=== PATIENT | female | born 1985 | race Hispanic/Latino ===

== ENCOUNTER 2017-11-10 13:56 | Outpatient (CLI) | payer BC, OTHER | END 2017-11-10 13:57 | disposition home or self-care (01) | LOC: DTY/OP 13:56 | PROVIDERS: ATTEND Family Medicine | DX: E66.01 Morbid (severe) obesity due to excess calories (principal) | CPT/HCPCS: 97802 ==

== ENCOUNTER 2017-12-07 16:42 | Outpatient (CLI) | payer BC ==
[2017-12-07 17:08] LABS: #Basophils 0.1 thou/uL (0.0-0.2); #Eosinphils 0.1 thou/uL (0.0-0.7); #Lymphocytes 2.3 thou/uL (1.20-3.40); #Monocytes 0.5 thou/uL (0.11-0.59); #Neutrophils 6.4 thou/uL (1.40-6.50); %Basophils 0.7 % (0.0-1.0); %Eosinophils 0.9 % (0.0-10.0); %Lymphocytes 24.7 % (21.0-51.0); %Monocytes 5.1 % (0.0-10.0); %Neutrophils 68.7 % (42.0-75.0); Hemoglobin 13.5 g/dL (12.0-16.0); Mean Corpuscular HGB CONC 33.8 g/dL (32.0-36.0); Mean Corpuscular Hemoglobin 28.3 pg (27.0-31.0); Mean Corpuscular Volume 83.7 fL (78.0-98.0); Mean Platelet Volume 7.7 fL (7.4-10.4); Platelet Count 317 thou/uL (130-400); RBC Distribution Width 11.9 % (11.5-14.5); Red Blood Cell (RBC) Count 4.78 mill/uL (4.20-5.40); White Blood Cell (WBC) Count 9.3 thou/uL (4.8-10.8)
--- NOTE | 2017-12-07 17:11 | RAD ---
CHEST TWO VIEWS: 12/07/17 HISTORY: Preop. FINDINGS: No comparison. The cardiac silhouette and pulmonary vasculature are unremarkable. The mediastinum is midline. No con fluent air space consolidation, pneumothorax or pleural fluid are apparent. IMPRESSION: No active cardiopulmonary abnormalities are demonstrated. POS: [facility]
[2017-12-07 17:19] LABS: BHCG - Serum Negative (NEGATIVE); Pregs Control Background? CLEAR/WHITE (CLR/WHITE); Pregs Control Bar Appear? YES (CONTROL BAR)
[2017-12-07 17:22] LABS: Hemoglobin A1c 4.9 % (4.0-6.0)
[2017-12-07 17:31] LABS: ALT (SGPT) 13 U/L (8-55); AST (SGOT) 12 U/L (5-34); Alkaline Phosphatase 74 U/L (40-150); Anion Gap 14 mmol/L (10-20); BUN (Urea Nitrogen) 18 mg/dL (7.0-18.7); Bilirubin, Direct 0.2 mg/dL (0.1-0.3); Bilirubin, Total 0.4 mg/dL (0.2-1.2); Calc. Creatinine Clearance 0 mL/min (70-130); Calcium 9.7 mg/dL (7.8-10.44); Carbon Dioxide 24 mmol/L (22-29); Chloride 103 mmol/L (98-107); Estimated GFR-MDRD 69; Globulin 3.6 g/dL (2.4-3.5); Glucose 80 mg/dL (70-105); Protein, Total 7.6 g/dL (6.0-8.3); Sodium 137 mmol/L (136-145)
--- NOTE | 2017-12-09 16:52 | EKG ---
Test Reason : Blood Pressure : / mmHG Vent. Rate : 073 BPM Atrial Rate : 073 BPM P-R Int : 160 ms QRS Dur : 084 ms QT Int : 386 ms P-R-T Axes : 053 071 028 degrees QTc Int : 425 ms Normal sinus rhythm with sinus arrhythmia Normal ECG When compared with ECG of 29-SEP-2000 23:35, PREVIOUS ECG IS PRESENT Confirmed by HARLEEN GALLEGOS ([id number]) on 12/09/2017 4:51:53 PM Referred By: [facility] Confirmed By:HARLEEN GALLEGOS
== END 2017-12-07 16:43 | disposition home or self-care (01) ==
LOC: LABBT 16:42
PROVIDERS: ATTEND Surgery
DX: E66.01 Morbid (severe) obesity due to excess calories (principal)
CPT/HCPCS: 71046; 80053; 80076; 83036; 84703; 85025; 93005; 93010

== ENCOUNTER 2019-01-26 15:32 | Outpatient (CLI) | payer BC ==
[2019-01-26 17:00] LABS: Hemoglobin 13.4 g/dL (12.0-16.0); Mean Corpuscular HGB CONC 33.3 g/dL (32.0-36.0); Mean Corpuscular Hemoglobin 29.5 pg (27.0-31.0); Mean Corpuscular Volume 88.6 fL (78.0-98.0); Mean Platelet Volume 8.3 fL (7.4-10.4); Platelet Count 278 thou/uL (130-400); RBC Distribution Width 11.9 % (11.5-14.5); Red Blood Cell (RBC) Count 4.54 mill/uL (4.20-5.40); White Blood Cell (WBC) Count 6.9 thou/uL (4.8-10.8)
[2019-01-26 17:03] LABS: Prothrombin Time 13.2 SEC (12.0-14.7)
[2019-01-26 17:16] LABS: Anion Gap 11 mmol/L (10-20); BUN (Urea Nitrogen) 9 mg/dL (7.0-18.7); Calc. Creatinine Clearance 0 mL/min (70-130); Carbon Dioxide 25 mmol/L (22-29); Chloride 104 mmol/L (98-107); Estimated GFR-MDRD 85; Glucose 77 mg/dL (70-105); Potassium 3.4 mmol/L (3.5-5.1); Sodium 137 mmol/L (136-145)
[2019-01-26 18:15] LABS: BHCG - Serum Negative (NEGATIVE); Pregs Control Background? CLEAR/WHITE (CLR/WHITE); Pregs Control Bar Appear? YES (CONTROL BAR)
--- NOTE | 2019-01-30 23:04 | EKG ---
Test Reason : Blood Pressure : / mmHG Vent. Rate : 075 BPM Atrial Rate : 075 BPM P-R Int : 168 ms QRS Dur : 076 ms QT Int : 406 ms P-R-T Axes : 066 065 045 degrees QTc Int : 453 ms Normal sinus rhythm Normal ECG When compared with ECG of 07-DEC-2017 16:48, No significant change was found Confirmed by ATA LÓPEZ M.D. ([id number] on 01/30/2019 11:03:40 PM Referred By: [facility] Confirmed By:ATA LÓPEZ M.D.
== END 2019-01-26 15:33 | disposition home or self-care (01) ==
LOC: LABBT 15:32
PROVIDERS: ATTEND Internal Medicine Cardiovascular Disease
DX: Z01.818 Encounter for other preprocedural examination (principal)
CPT/HCPCS: 80048; 84703; 85027; 85610; 85730; 93005; 93010

== ENCOUNTER 2019-01-30 06:03 | Day surgery (SDC) | payer BC ==
[2019-01-26 16:38] VITALS: BMI 30.2
[2019-01-30] MEDS ORDERED: Lidocaine 1% (PF) 30 ML VIAL ONE (06:43)
[2019-01-30] MEDS ORDERED: Midazolam HCl 2 mg/2 ml Vial ONE (07:42)
[2019-01-30] MEDS ORDERED: Meperidine HCl/PF 25 MG/ML VIAL ONE (07:42)
[2019-01-30] MEDS ORDERED: Propofol 500 MG/50 ML VIAL ONE (08:10)
[2019-01-30] MEDS ORDERED: Isoproterenol 0.2 MG/1 ML AMP ONE (09:00)
--- NOTE | 2019-01-30 13:27 | OP ---
DATE OF PROCEDURE: 01/30/2019 PROCEDURES PERFORMED: Electrophysiology study and radiofrequency ablation. REASON FOR PROCEDURE: Ms. Johnson is a 33-year-old female with prior history of supraventricular tachycardia, here for EP study and radiofrequency ablation. DESCRIPTION OF PROCEDURE: The patient received propofol by Anesthesia specialist. The left and right groin were prepped, draped, and anesthetized using subcutaneous lidocaine and with ultrasound guidance both femoral veins were cannulated. On the left side, 6 and 8-English sheaths were used to advance two decapolar catheters at the right atrium, right ventricle, His bundle, and CS position. Pacing, mapping, and recording were performed at each location including pacing left atrium via the CS catheter. The following baseline findings were noted. Baseline cycle length 123 milliseconds, TN 183 milliseconds, QRS 75 milliseconds, QT 389 milliseconds, AH 103 milliseconds, HV 37 milliseconds, AV Wenckebach cycle length was 380 milliseconds, retrograde Wenckebach cycle length was 340 milliseconds, and AV linda ERP was 600/260 milliseconds. There was no definite jump was demonstrated, but the retrograde VA conduction was concentric. Rapid atrial pacing did induce short atypical atrial flutter at baseline, which is self-terminated. Pacing around the AV Wenckebach cycle length induced a narrow complex SVT with cycle length of 390 milliseconds with VA interval very short less than 50 milliseconds. The burst ventricular pacing entrain the tachycardia and VA-VA response was noted. This suggested AV linda reentrant tachycardia. Hence, through a short sheath on the right femoral venous access, a 4 mm regular ablation catheter was advanced to the right atrium. 3D map of the right atrium delineating the His bundle, slow pathway and CS locations were obtained. Radiofrequency ablation was performed in the slow pathway area, total of 9 lesions delivered at 3 minutes and 26 seconds duration. Junctional beats were observed throughout the dowell and no significant AV block was noted. Only nonconducted PACs were seen on occasion. Following the Isuprel was administered, the pacing maneuvers were repeated. At this point, no echo beats were seen and again, extrastimuli testing with [address] yielded AV linda ERP of the 400/260 milliseconds. Atrial ERP was 400/180 milliseconds. Burst atrial pacing again did not reinduce the SVT seen in the beginning. BLAYNE view cardiac silhouette did not change significantly with that procedure. Catheter was pulled in the chemistry lab instructor. The sheaths were removed and hemostasis was obtained with manual pressure. CONCLUSION: 1. Easily inducible AV linda reentrant tachycardia. 2. Slow pathway modification eliminating inducibility of the SVT. 3. Short atypical atrial flutter/atrial fibrillation was seen with burst atrial pacing at baseline. 4. Short nonsustained atrial tachycardia also seen with Isuprel in the end of the case. 5. No evidence of accessory pathway. 6. Normal sinus and AV linda function pre and post procedure observed. Normal HV interval as well. PLAN: Routine post ablation care and monitor for recurrence. Job ID: [id number]
== END 2019-01-30 14:04 | disposition home or self-care (01) ==
LOC: SDC 06:03
PROVIDERS: ATTEND Internal Medicine Cardiovascular Disease
PROC: 4A0234Z Measurement of Cardiac Electrical Activity, Percutaneous Approach (ICD-10-PCS; principal; 2019-01-30)
PROC: 4A023FZ Measurement of Cardiac Rhythm, Percutaneous Approach (ICD-10-PCS; principal; 2019-01-30)
PROC: 02K83ZZ Map Conduction Mechanism, Percutaneous Approach (ICD-10-PCS; principal; 2019-01-30)
PROC: 02583ZZ Destruction of Conduction Mechanism, Percutaneous Approach (ICD-10-PCS; principal; 2019-01-30)
DX: I47.1 Supraventricular tachycardia (principal); Z79.899 Other long term (current) drug therapy; Z88.0 Allergy status to penicillin; Z88.2 Allergy status to sulfonamides; Z91.040 Latex allergy status; Z98.84 Bariatric surgery status
CPT/HCPCS: 76942; 93005; 93010; 93613; 93621; 93623; 93653; C1730; C1769; J1644; J2001; J2175; J2250; J2704